=== PATIENT | male | born 1945 | race African-American/Black ===

== ENCOUNTER 2020-02-01 18:17 | Inpatient (IN) | payer OTHER ==
[2020-02-01] MEDS ORDERED: HYDROMORPHONE HCL 1 MG/ML INJ IV PRN (18:30)
[2020-02-01] MEDS ORDERED: LORazepam 2 MG/ML VIAL IV PRN (18:31)
[2020-02-01] MEDS ORDERED: SCOPOLAMINE HYDROBROMIDE PATCH TD SCH (21:00)
--- NOTE | 2020-02-01 22:25 | P.HP ---
Certification for Inpatient Patient admitted to: Inpatient With expected LOS: >2 Midnights Practitioner: I am a practitioner with admitting privileges, knowledge of patient current condition, hospital course, and medical plan of care. Services: Services provided to patient in accordance with Admission requirements found in Title 42 Section 412.3 of the Code of Federal Regulations Patient History Date of Service: 02/01/20 Reason for admission: HOSPICE ADMISSION FOR PANCAREATIC CANCER. History of Present Illness: MR. 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 CARRANZA ASKED ME TO DO INPATIENT HOSPICE HE ANTICIPATES THAT EITHER HE WILL ON TRANSPORTATION OR HE WILL HAVE MORE DISTERSS WHEN WE REMOVE OXYGEN AND LET HIM PASS. Allergies No Known Allergies Allergy (Verified 05/28/13 21:05) Home Medications: Amlodipine Besylate 5 mg PO DAILY 05/29/13 Losartan/Hydrochlorothiazide [Losartan-Hctz 100-25 mg Tab] 1 each PO DAILY 05/29/13 Acetaminophen [Tylenol*] 325 mg PO Q6HP PRN #0 tab 06/03/13 LORazepam [Ativan*] 0.5 mg PO BID PRN #0 tab 06/03/13 Multivit,Ther Iron,Ca,FA & Min [Centrum Tablet*] 1 tab PO DAILY #0 tab 06/03/13 Thiamine HCl [Thiamine*] 100 mg IM DAILY #0 vial 06/03/13 Ziprasidone [Geodon*] 10 mg IM Q12H PRN #0 vial 06/03/13 - Past Medical/Surgical History Diabetic: No -: hyperlipidemia -: Pancreatic cancer -: Dementia -: stomach cancer - Social History Alcohol use: Yes CD- Drugs: No Caffeine use: Yes Review of Systems is unable to be obtained Physical Examination - Vital Signs Temperature: 97.3 F Blood Pressure: 161/105 Pulse: 57 Respirations: 24 Pulse Ox (%): 94 - Physical Exam General: Comatose HEENT: Atraumatic, PERRLA, Mucous membr. moist/pink, EOMI, Sclerae nonicteric Neck: Supple, 2+ carotid pulse no bruit, No LAD, Without JVD or thyroid abnor mality Respiratory: Diminished Cardiovascular: Regular rate/rhythm, Normal S1 S2 Gastrointestinal: Normal bowel sounds, No tenderness Musculoskeletal: No tenderness Integumentary: No rashes Neurological: Normal gait, Normal speech, Normal strength at 5/5 x4 extr, Normal tone, Normal affect Lymphatics: No axilla or inguinal lymphadenopathy Assessment and Plan - Problems (Diagnosis) (1) Pancreas cancer Current Visit: Yes Status: Chronic Plan: HE IS END STAGE. COMATOSE. FAMILY ASKED DR. CARRANZA TO GET INPATIENT HOSPICE RESIDENTIAL CARE FOR SUDDEN AND ANTICIPATED ACUTE DISTRESS IS NOT GOOD ENOUGH. HE IS NOW ON CONSTANT IV PAIN CONTROL AND MEDS FOR AGITATION. (2) Dehydration Current Visit: Yes Status: Acute Plan: IT IS AN OMINOUS SIGN OF END STAGE. - Advance Directives Does patient have a Living Will: No Does patient have a Durable POA for Healthcare: No
[2020-02-02 00:02] VITALS: BMI 25.8
--- NOTE | 2020-02-02 08:57 | EKG ---
Test Date: 2020-01-31 Test Time: 10:24:22 Professor Of Special Education: BJ MEASUREMENT RESULTS: Intervals: Rate: 81 AL: 174 QRSD: 116 QT: 482 QTc: 559 [place]: P: 72 AL: 174 QRS: 81 T: 84 INTERPRETIVE STATEMENTS: Sinus rhythm with premature supraventricular complexes Incomplete left bundle branch block Nonspecific ST and T wave abnormality Prolonged QT Abnormal ECG Compared to ECG 05/28/2013 13:13:15 Atrial premature complex(es) now present Left bundle-branch block now present ST (T wave) deviation now present Prolonged QT interval now present Sinus bradycardia no longer present Left ventricular hypertrophy no longer present Electronically Signed On 02-02-20 08:54:25 CDT by Parminder Gooden
[2020-02-02 23:17] VITALS: O2SAT 90
[2020-02-03 08:40] VITALS: BP 124/57; TEMP 96.9
--- NOTE | 2020-02-03 12:35 | P.DS ---
Admission Date: 02/01/20 Discharge Date: 02/03/20 Disposition: HOSPICE-HOME Discharge Condition: SERIOUS Reason for Admission: HOSPICE ADMISSION FOR PANCAREATIC CANCER. - Problems (1) Pancreas cancer Current Visit: Yes Status: Chronic (2) Dehydration Current Visit: Yes Status: Acute Brief History of Present Illness: MR. 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 CARRANZA ASKED ME TO DO INPATIENT HOSPICE HE ANTICIPATES THAT EITHER HE WILL ON TRANSPORTATION OR HE WILL HAVE MORE DISTERSS WHEN WE REMOVE OXYGEN AND LET HIM PASS. Hospital Course: MR. KELLEY'S SYMPTOMS ARE CONTROLLED. PER CMS RULES I HAVE TALKED TO [facility] AND FAMILY TO HAVE HIM MOVED HOME WITH DAUGHTER SO WE CAN CONTINUE COMFORT CARE. HE MAY NOT LIVE MORE THAN A WEEK OR SO WITH END STAGE PANCREATIC CANCER. Vital Signs/Physical Exam: Temp Pulse Resp BP Pulse Ox 96.9 F 57 16 124/57 L 84 L 02/03/20 08:00 02/03/20 08:00 02/03/20 08:00 02/03/20 08:00 02/03/20 12:00 Home Medications: LORazepam [Ativan*] 0.5 mg PO BID PRN #0 tab 06/03/13
--- NOTE | 2020-02-05 14:47 | PN ---
Mr. Dumont is stable, lying on the bed. He has some rapid respirations at this point, but still seems t o be pain free, does not show any signs of pain on the facial expressions. His respiratory system ma y give us more symptoms. He may end up being in snf with hospice care at this point. Discu ssed with the head nurse for hospice about the same. Currently, he is on morphine and Ativan p.r.n. Prognosis remains poor with pancreatic cancer, which is locally advanced. RVD/MODL Voice ID: [id number] Report ID: [id number]
== END 2020-02-03 20:20 | disposition hospice, home (50) | DRG 951 ==
LOC: 2ND 18:17 → UNDODISIN 02-03 19:05
PROVIDERS: ADMIT Internal Medicine; ATTEND Internal Medicine
DX: Z51.5 Encounter for palliative care (principal); R40.20 Unspecified coma; C25.9 Malignant neoplasm of pancreas, unspecified; E86.0 Dehydration; E78.5 Hyperlipidemia, unspecified; Z79.899 Other long term (current) drug therapy; Z85.028 Personal history of other malignant neoplasm of stomach
CPT/HCPCS: 93005; J1170